=== PATIENT | male | born 1985 | race American Indian/Alaskan Native ===

== ENCOUNTER 2017-11-22 01:50 | Emergency (ER) | payer OTHER ==
[2017-11-22] MEDS ORDERED: ZOFRAN ODT PO ONE (07:56)
[2017-11-22] MEDS ORDERED: NORCO 5/325 PO ONE (07:56)
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
[2017-11-22 09:11] VITALS: BP 119/66
--- NOTE | 2017-11-22 09:20 | XRay Report ---
CERVICAL SPINE, 3 views: History: Neck pain. Findings: There is reversal of the normal cervical lordosis is moderate degenerative disc disease at C3-4 and C4-5. There is no evidence for fracture, subluxation or bone lesion. The dens is intact. The prevertebral soft tissues are normal thickness. Impression: No evidence for acute injury to the cervical spine. Reversal of the normal cervical lordosis. Degenerative changes.
== END 2017-11-22 10:00 | disposition home or self-care (01) ==
LOC: ED 01:50
DX: S09.8XXA Other specified injuries of head, initial encounter (principal); F17.200 Nicotine dependence, unspecified, uncomplicated; V59.19XA Passenger in pick-up truck or van injured in collision with other motor vehicles in nontraffic accident, initial encounter; Y93.89 Activity, other specified; Y92.89 Other specified places as the place of occurrence of the external cause; Y99.8 Other external cause status
CPT/HCPCS: 70450; 72040; Q0162

== ENCOUNTER 2017-11-24 16:29 | Emergency (ER) | payer SELFPAY ==
[2017-11-24 17:01] VITALS: BP 126/84
--- NOTE | 2017-11-24 18:49 | Emergency Department Report ---
HPI - General Chief Complaint: Sore Throat Time Seen by Provider: 11/24/17 18:27 - HPI HPI: Patient reports esophageal pain and that he is unable to swallow since 2 AM this morning. He states he has to have esophagus stretched. Patient denies any previous history. He said he just moved here from the [facility] and he called his doctor and they told him to come to the emergency room. Denies any drooling or difficulty controlling secretions. Pain is 10 out of 10. Reports history of acid reflux. He also reports that he has congestion and runny nose. Denies any medical problems. Denies any fever or chills or nausea or vomiting. Denies any coughing, shortness of breath. He reports that his chest is burning . No furx-xot-nxoscny medication taken. ED Past Medical Hx - Past Medical History Previous Medical History?: No - Surgical History Past Surgical History?: No - Family History Family history: no significant - Social History Smoking Status: Current Every Day Smoker Substance Use Type: Alcohol - Medications Home Medications: Home Medications Medication Instructions Recorded Confirmed Last Taken Type Cyclobenzaprine [Flexeril] 10 mg PO TID PRN #12 tablet 11/22/17 Unknown Rx Ibuprofen [Motrin] 800 mg PO Q8HR PRN #30 tablet 11/22/17 Unknown Rx ED Review of Systems ROS: Stated complaint: cp Other details as noted in HPI Comment: All other systems reviewed and negative Constitutional: no symptoms reported ENT: throat pain, congestion, other (reports pain to esophagitis and possible need stretch and). denies: ear pain, dental pain, hearing loss Respiratory: no symptoms reported Cardiovascular: denies: chest pain, palpitations, edema, syncope Gastrointestinal: denies: abdominal pain, nausea, vomiting Musculoskeletal: denies: back pain, joint swelling, myalgia Skin: denies: rash Neurological: denies: headache Physical Exam - Physical Exam Vital Signs: Vital Signs 11/24/17 16:56 Temperature 99 F Pulse Rate 84 Respiratory 16 Rate Blood Pressure 126/84 O2 Sat by Pulse 98 Oximetry General: This is a 32-year-old male well-nourished well-developed in no acute distress. Physical Exam: Head: Normocephalic atraumatic Ears:BIateral TM congested without erythema and loss of bony landmarks. Bryce EAC with normal exam. No mastoid bone tenderness. Mouth: Moist, no pharyngeal erythema or exudate . No tonsillar erythema or exudate. UVULA midline and oral airways patent. No peritonsillar abscess. Tongue is normal. Patient challenged with apple juice and he was able to swallow without any regurgitation. He did express that he was having some difficulty swallowing but none noted. Neck: Nontender to palpate, supple, normal range of motion. No adenopathy. No c- spine tenderness. Nose: Bilateral nasal mucosa congested with clear drainage. Maxillary and frontal sinuses non-tender to palpate. Eyes: Sclerae and conjunctiva without injection. Bilateral pupils equal and reactive to light. Bilateral lids are normal. Normal accommodation.BEOMI Lungs: Clear to auscultate bilaterally, no rhonchi wheezes or rales. Normal work of breathing and no chest wall tenderness Extremity: No clubbing, cyanosis or edema +2 pulses all extremities Abdomen: Soft, nontender to palpate in all quadrants, no guarding or rebound tenderness. No chest wall tenderness CV: S1, S2. Regular rate and rhythm negative murmur. Capillary refill is less than 3 seconds Skin: Clean dry and intact, no rashes or lesions Psych: Normal mood and behavior ED Course Vital Signs 11/24/17 16:56 Temperature 99 F Pulse Rate 84 Respiratory 16 Rate Blood Pressure 126/84 O2 Sat by Pulse 98 Oximetry - Reevaluation(s) Reevaluation #1: 11/24/17 19:16 Patient had an uneventful ED stay. He was challenged with by mouth apple juice and tolerated without any regurgitation. ED Medical Decision Making - Medical Decision Making ED course: Pt here reports difficulty swallowing and that he might need is esophagus stretched. He said he moved from the [facility] and he call his primary care doctor and was told to come to the emergency room. Physical findings were normal oral exam but patient with nasal congestion, runny nose, bilateral TM congested and he reports some sore throat worse with swallowing. He was orally challenged in the emergency room with upper juice and was able to tolerate. I discussed patient that his vital signs are stable and he is not regurgitated and his fluids and not drooling and his examination of mouth is normal without any abnormality neck. Patient reports no medical problems although he told me his esophagus needs to be stretch. I discussed with him that I will place him on medication to treat upper respiratory infection to include Zyrtec and Flonase and some steroids. He denies in immunocompromised. Patient agrees to treatment plan but nurse reports she went in the room to do a EKG on patient and he was not in the room. Patient was paged overhead without any response therefore he left after being seen. Critical care attestation.: If time is entered above; I have spent that time in minutes in the direct care of this critically ill patient, excluding procedure time. ED Disposition Clinical Impression: Sore throat, URI, acute Disposition: Z-07 ELOPED Is pt being admited?: No Does the pt Need Aspirin: No Condition: Stable
== END 2017-11-24 19:21 | disposition left against medical advice (07) ==
LOC: ED 16:29
DX: J02.9 Acute pharyngitis, unspecified (principal); F17.200 Nicotine dependence, unspecified, uncomplicated
CPT/HCPCS: 99282

== ENCOUNTER 2020-03-26 08:04 | Emergency (ER) | payer OTHER ==
[2020-03-26 08:55] LABS: Hematocrit 41.9 % (35.5-45.6); Hemoglobin 14.3 gm/dl (11.8-15.2); Mean Corpuscular HGB Conc 34 % (32-34); Mean Corpuscular Volume 93 fl (84-94); Platelet Count 226 K/mm3 (140-440); Red Blood Count 4.53 M/mm3 (3.65-5.03); Red Cell Distribution Width 14.2 % (13.2-15.2)
[2020-03-26 09:00] LABS: Bilirubin,Urine NEG (Negative); Blood,Urine NEG (Negative); Color,Urine Yellow (Yellow); Mucus,Urine FEW /HPF; Protein,Urine <15 mg/dL mg/dL (Negative); Urobilinogen,Urine < 2.0 mg/dL (<2.0)
[2020-03-26 09:09] LABS: Alanine Aminotransferase 9 units/L (7-56); Albumin 4.9 g/dL (3.9-5); BUN/Creatinine Ratio 15; Blood Urea Nitrogen 17 mg/dL (9-20); Calcium 9.9 mg/dL (8.4-10.2); Hemolysis Index 4
[2020-03-26] MEDS ORDERED: ALUM-MAG HYDROXIDE-SIMETHICONE 200-200-20MG/5ML ORAL LIQD 30 ML PO STA (10:58)
[2020-03-26] MEDS ORDERED: ONDANSETRON 4 MG ODT TAB PO STA (10:58)
[2020-03-26] MEDS ORDERED: HYOSCYAMINE SUBL 0.125 MG TAB SL ONE (10:58)
[2020-03-26] MEDS ORDERED: diphenhydrAMINE 25 MG/10 ML ORAL LIQUID PO ONE (10:59)
[2020-03-26] MEDS ORDERED: LIDOCAINE VISCOUS 2% 15 ML ORAL LIQD PO ONE (10:59)
[2020-03-26 11:41] LABS: Eosinophils % (Manual) 0 % (0.0-4.3); Platelet Estimate Consistent w Auto; RBC Morphology Normal; Total Cells Counted 100
--- NOTE | 2020-03-26 12:25 | Cat Scan Report ---
CT abdomen pelvis w con INDICATION: MAIN: Lower ABD Pain, Nausea x 1 wk, mid lower back pain no hx of kidney stones . TECHNIQUE: All CT scans at this location are performed using the following dose modulation technique: Automated exposure control. CONTRAST: Isovue-300, 100 cc IV injection. COMPARISON: None available. CT ABDOMEN: The parenchymal organs are unremarkable in appearance. Negative for abdominal mass, fluid or inflammation. The bowel is not dilated or thickened. CT PELVIS: The appendix is normal. Negative for distal ureteral stone, pelvic fluid collection or loc alized inflammation. IMPRESSION: Negative for obstruction or localized inflammation. Signer Name: Puma Smith MD Signed: 03/26/2020 12:20 PM Workstation Name: [id number]
--- NOTE | 2020-03-26 12:49 | Emergency Department Report ---
ED Abdominal Pain HPI - General Chief Complaint: Abdominal Pain Stated Complaint: STOMACH PAIN/ CHEST TIGHTNESS Time Seen by Provider: 03/26/20 10:05 Source: patient Mode of arrival: Ambulatory Limitations: No Limitations - History of Present Illness MD Complaint: abdominal pain -: Gradual, hour(s) (5) Location: diffuse Radiation: none Migration to: no migration Severity: mild, moderate Quality: cramping, aching Consistency: constant Improves With: nothing Worsens With: eating Context: possible food poisoning Associated Symptoms: denies: fever, chills, dysuria, hematemesis, hematochezia, melena, hematuria, anorexia - Related Data Previous Rx's Medication Instructions Recorded Last Taken Type Cyclobenzaprine [Flexeril] 10 mg PO TID PRN #12 tablet 11/22/17 Unknown Rx Ibuprofen [Motrin] 800 mg PO Q8HR PRN #30 tablet 11/22/17 Unknown Rx Hyoscyamine Subl [Levsin Sl] 0.125 mg SL Q4HR PRN #16 tablet 03/26/20 Unknown Rx Omeprazole 40 mg PO DAILY #30 capsule. 03/26/20 Unknown Rx Allergies Allergy/AdvReac Type Severity Reaction Status Date / Time No Known Allergies Allergy Verified 03/26/20 08:13 ED Review of Systems ROS: Stated complaint: STOMACH PAIN/ CHEST TIGHTNESS Other details as noted in HPI Comment: All other systems reviewed and negative ED Past Medical Hx - Past Medical History Previous Medical History?: No - Surgical History Past Surgical History?: No - Social History Smoking Status: Never Smoker Substance Use Type: None - Medications Home Medications: Home Medications Medication Instructions Recorded Confirmed Last Taken Type Cyclobenzaprine [Flexeril] 10 mg PO TID PRN #12 tablet 11/22/17 Unknown Rx Ibuprofen [Motrin] 800 mg PO Q8HR PRN #30 tablet 11/22/17 Unknown Rx Hyoscyamine Subl [Levsin Sl] 0.125 mg SL Q4HR PRN #16 tablet 03/26/20 Unknown Rx Omeprazole 40 mg PO DAILY #30 capsule. 03/26/20 Unknown Rx ED Physical Exam - General Limitations: No Limitations General appearance: alert, in no apparent distress - Head Head exam: Present: atraumatic, normocephalic - Eye Eye exam: Present: normal appearance, PERRL, EOMI - ENT ENT exam: Present: mucous membranes moist - Neck Neck exam: Present: normal inspection, full ROM - Respiratory Respiratory exam: Present: normal lung sounds bilaterally. Absent: respiratory distress, wheezes, rales, chest wall tenderness, accessory muscle use, decreased breath sounds - Cardiovascular Cardiovascular Exam: Present: regular rate, normal rhythm. Absent: systolic murmur, diastolic murmur, rubs, gallop - GI/Abdominal GI/Abdominal exam: Present: soft, tenderness (Some tenderness to the epigastric and left upper quadrant region. The abdomen is soft nontender), normal bowel sounds, other (No Rovsing, no Weir Luu, no Jairo sign, no tenderness at McBurney's. No Huffman sign). Absent: hyperactive bowel sounds, hypoactive bowel sounds, organomegaly, mass, pulsatile mass - Rectal Rectal exam: Present: deferred - Extremities Exam Extremities exam: Present: normal inspection, normal capillary refill - Back Exam Back exam: Present: normal inspection. Absent: CVA tenderness (R), CVA tenderness (L) - Neurological Exam Neurological exam: Present: alert, oriented X3, CN II-XII intact, normal gait - Psychiatric Psychiatric exam: Present: normal affect, normal mood - Skin Skin exam: Present: warm, dry, intact, normal color. Absent: rash ED Course Vital Signs 03/26/20 03/26/20 03/26/20 08:13 10:03 13:04 Pulse Rate 100 H 57 L Respiratory 18 18 20 Rate Blood Pressure 135/77 Blood Pressure [Right] O2 Sat by Pulse 100 99 Oximetry 03/26/20 13:07 Pulse Rate 69 Respiratory 18 Rate Blood Pressure Blood Pressure 122/78 [Right] O2 Sat by Pulse 98 Oximetry ED Medical Decision Making - Lab Data Result diagrams: 03/26/20 08:43 03/26/20 08:43 Lab Results 03/26/20 03/26/20 03/26/20 Range/Units 08:43 08:43 Unknown WBC 4.8 (4.5-11.0) K/mm3 RBC 4.53 (3.65-5.03) M/mm3 Hgb 14.3 (11.8-15.2) gm/dl Hct 41.9 (35.5-45.6) % MCV 93 (84-94) fl MCH 32 (28-32) pg MCHC 34 (32-34) % RDW 14.2 (13.2-15.2) % Plt Count 226 (140-440) K/mm3 Lymph % (Auto) Top Frame Fitter Add Manual Diff Complete Total Counted 100 Seg Neutrophils % Top Frame Fitter Seg Neuts % (Manual) 30.0 L (40.0-70.0) % Band Neutrophils % 0 % Lymphocytes % (Manual) 63.0 H (13.4-35.0) % Reactive Lymphs % (Man) 0 % Monocytes % (Manual) 6.0 (0.0-7.3) % Eosinophils % (Manual) 0 (0.0-4.3) % Basophils % (Manual) 1.0 (0.0-1.8) % Metamyelocytes % 0 % Myelocytes % 0 % Promyelocytes % 0 % Blast Cells % 0 % Nucleated RBC % Not Reportable Seg Neutrophils # Man 1.4 L (1.8-7.7) K/mm3 Band Neutrophils # 0.0 K/mm3 Lymphocytes # (Manual) 3.0 (1.2-5.4) K/mm3 Abs React Lymphs (Man) 0.0 K/mm3 Monocytes # (Manual) 0.3 (0.0-0.8) K/mm3 Eosinophils # (Manual) 0.0 (0.0-0.4) K/mm3 Basophils # (Manual) 0.0 (0.0-0.1) K/mm3 Metamyelocytes # 0.0 K/mm3 Myelocytes # 0.0 K/mm3 Promyelocytes # 0.0 K/mm3 Blast Cells # 0.0 K/mm3 WBC Morphology Not Reportable Hypersegmented Neuts Not Reportable Hyposegmented Neuts Not Reportable Hypogranular Neuts Not Reportable Smudge Cells Not Reportable Toxic Granulation Not Reportable Toxic Vacuolation Not Reportable Dohle Bodies Not Reportable Pelger-Huet Anomaly Not Reportable Nikhil Rods Not Reportable Platelet Estimate Consistent w auto Clumped Platelets Not Reportable Plt Clumps, EDTA Not Reportable Large Platelets Not Reportable Giant Platelets Not Reportable Platelet Satelliting Not Reportable Plt Morphology Comment Not Reportable RBC Morphology Normal Dimorphic RBCs Not Reportable Polychromasia Not Reportable Hypochromasia Not Reportable Poikilocytosis Not Reportable Anisocytosis Not Reportable Microcytosis Not Reportable Macrocytosis Not Reportable Spherocytes Not Reportable Pappenheimer Bodies Not Reportable Sickle Cells Not Reportable Target Cells Not Reportable Tear Drop Cells Not Reportable Ovalocytes Not Reportable Helmet Cells Not Reportable Guido[place] Bodies Not Reportable [place] Rings Not Reportable [place] Cells Not Reportable Bite Cells Not Reportable Crenated Cell Not Reportable Elliptocytes Not Reportable Acanthocytes (Spur) Not Reportable Rouleaux Not Reportable Hemoglobin C Crystals Not Reportable Schistocytes Not Reportable Malaria parasites Not Reportable Bruce Bodies Not Reportable Hem Pathologist Commnt No Sodium 139 (137-145) mmol/L Potassium 4.0 (3.6-5.0) mmol/L Chloride 102.6 (98-107) mmol/L Carbon Dioxide 25 (22-30) mmol/L Anion Gap 15 mmol/L BUN 17 (9-20) mg/dL Creatinine 1.1 (0.8-1.5) mg/dL Estimated GFR > 60 ml/min BUN/Creatinine Ratio 15 % Glucose 95 (75-100) mg/dL Calcium 9.9 (8.4-10.2) mg/dL Total Bilirubin 0.50 (0.1-1.2) mg/dL AST 14 (5-40) units/L ALT 9 (7-56) units/L Alkaline Phosphatase 50 (35-129) units/L Total Protein 7.4 (6.3-8.2) g/dL Albumin 4.9 (3.9-5) g/dL Albumin/Globulin Ratio 2.0 % Lipase (13-60) units/L Urine Color Yellow (Yellow) Urine Turbidity Clear (Clear) Urine pH 5.0 (5.0-7.0) Ur Specific [place] 1.023 (1.003-1.030) Urine Protein <15 mg/dl (Negative) mg/dL Urine Glucose (UA) Neg (Negative) mg/dL Urine Ketones Tr (Negative) mg/dL Urine Blood Neg (Negative) Urine Nitrite Neg (Negative) Urine Bilirubin Neg (Negative) Urine Urobilinogen < 2.0 (<2.0) mg/dL Ur Leukocyte Esterase Neg (Negative) Urine WBC (Auto) 1.0 (0.0-6.0) /HPF Urine RBC (Auto) 1.0 (0.0-6.0) /HPF Urine Mucus Few /HPF 03/26/20 Range/Units Unknown WBC (4.5-11.0) K/mm3 RBC (3.65-5.03) M/mm3 Hgb (11.8-15.2) gm/dl Hct (35.5-45.6) % MCV (84-94) fl MCH (28-32) pg MCHC (32-34) % RDW (13.2-15.2) % Plt Count (140-440) K/mm3 Lymph % (Auto) Add Manual Diff Total Counted Seg Neutrophils % Seg Neuts % (Manual) (40.0-70.0) % Band Neutrophils % % Lymphocytes % (Manual) (13.4-35.0) % Reactive Lymphs % (Man) % Monocytes % (Manual) (0.0-7.3) % Eosinophils % (Manual) (0.0-4.3) % Basophils % (Manual) (0.0-1.8) % Metamyelocytes % % Myelocytes % % Promyelocytes % % Blast Cells % % Nucleated RBC % Seg Neutrophils # Man (1.8-7.7) K/mm3 Band Neutrophils # K/mm3 Lymphocytes # (Manual) (1.2-5.4) K/mm3 Abs React Lymphs (Man) K/mm3 Monocytes # (Manual) (0.0-0.8) K/mm3 Eosinophils # (Manual) (0.0-0.4) K/mm3 Basophils # (Manual) (0.0-0.1) K/mm3 Metamyelocytes # K/mm3 Myelocytes # K/mm3 Promyelocytes # K/mm3 Blast Cells # K/mm3 WBC Morphology Hypersegmented Neuts Hyposegmented Neuts Hypogranular Neuts Smudge Cells Toxic Granulation Toxic Vacuolation Dohle Bodies Pelger-Huet Anomaly Nikhil Rods Platelet Estimate Clumped Platelets Plt Clumps, EDTA Large Platelets Giant Platelets Platelet Satelliting Plt Morphology Comment RBC Morphology Dimorphic RBCs Polychromasia Hypochromasia Poikilocytosis Anisocytosis Microcytosis Macrocytosis Spherocytes Pappenheimer Bodies Sickle Cells Target Cells Tear Drop Cells Ovalocytes Helmet Cells Guido[place] Bodies [place] Rings Mere Cells Bite Cells Crenated Cell Elliptocytes Acanthocytes (Spur) Rouleaux Hemoglobin C Crystals Schistocytes Malaria parasites Bruce Bodies Hem Pathologist Commnt Sodium (137-145) mmol/L Potassium (3.6-5.0) mmol/L Chloride (98-107) mmol/L Carbon Dioxide (22-30) mmol/L Anion Gap mmol/L BUN (9-20) mg/dL Creatinine (0.8-1.5) mg/dL Estimated GFR ml/min BUN/Creatinine Ratio % Glucose (75-100) mg/dL Calcium (8.4-10.2) mg/dL Total Bilirubin (0.1-1.2) mg/dL AST (5-40) units/L ALT (7-56) units/L Alkaline Phosphatase (35-129) units/L Total Protein (6.3-8.2) g/dL Albumin (3.9-5) g/dL Albumin/Globulin Ratio % Lipase 16 (13-60) units/L Urine Color (Yellow) Urine Turbidity (Clear) Urine pH (5.0-7.0) Ur Specific [place] (1.003-1.030) Urine Protein (Negative) mg/dL Urine Glucose (UA) (Negative) mg/dL Urine Ketones (Negative) mg/dL Urine Blood (Negative) Urine Nitrite (Negative) Urine Bilirubin (Negative) Urine Urobilinogen (<2.0) mg/dL Ur Leukocyte Esterase (Negative) Urine WBC (Auto) (0.0-6.0) /HPF Urine RBC (Auto) (0.0-6.0) /HPF Urine Mucus /HPF - Radiology Data Radiology results: report reviewed [facility] [address] [place] [address] Cat Scan Report Signed Patient: BRAYAN MARIE MR#: [id number] : 1985 Acct:[id number] Age/Sex: 34 / M ADM Date: 03/26/20 Loc: ED Attending Dr: Ordering Physician: MARISSA PEÑA Date of Service: 03/26/20 Procedure(s): CT abdomen pelvis w con Accession Number(s): [id number] cc: MARISSA PEÑA CT abdomen pelvis w con INDICATION: MAIN: Lower ABD Pain, Nausea x 1 wk, mid lower back pain no hx of kidney stones . TECHNIQUE: All CT scans at this location are performed using the following dose modulation technique: Automated exposure control. CONTRAST: Isovue-300, 100 cc IV injection. COMPARISON: None available. CT ABDOMEN: The parenchymal organs are unremarkable in appearance. Negative for abdominal mass, fluid or inflammation. The bowel is not dilated or thickened. CT PELVIS: The appendix is normal. Negative for distal ureteral stone, pelvic fluid collection or localized inflammation. IMPRESSION: Negative for obstruction or localized inflammation. Signer Name: Puma Smith MD Signed: 03/26/2020 12:20 PM Workstation Name: [id number] Transcribed By: SUSAN Dictated By: Puma Smith MD Electronically Authenticated By: Puma Smith MD Signed Date/Time: 03/26/20 1220 DD/ 1210 TD/TT: - Medical Decision Making [place] [id number] Cat Scan Report Signed Patient: BRAYAN MARIE MR#: [id number] : 1985 Acct:[id number] Age/Sex: 34 / M ADM Date: 03/26/20 Loc: ED Attending Dr: Ordering Physician: MARISSA PEÑA Date of Service: 03/26/20 Procedure(s): CT abdomen pelvis w con Accession Number(s): [id number] cc: MARISSA PEÑA CT abdomen pelvis w con INDICATION: MAIN: Lower ABD Pain, Nausea x 1 wk, mid lower back pain no hx of kidney stones . TECHNIQUE: All CT scans at this location are performed using the following dose modulation technique: Automated exposure control. CONTRAST: Isovue-300, 100 cc IV injection. COMPARISON: None available. CT ABDOMEN: The parenchymal organs are unremarkable in appearance. Negative for abdominal mass, fluid or inflammation. The bowel is not dilated or thickened. CT PELVIS: The appendix is normal. Negative for distal ureteral stone, pelvic fluid collection or localized inflammation. IMPRESSION: Negative for obstruction or localized inflammation. Signer Name: Puma Smith MD Signed: 03/26/2020 12:20 PM Workstation Name: [id number] Transcribed By: SUSAN Dictated By: Puma Smith MD Electronically Authenticated By: Puma Smith MD Signed Date/Time: 03/26/20 1220 DD/ 1210 TD/TT: Critical care attestation.: If time is entered above; I have spent that time in minutes in the direct care of this critically ill patient, excluding procedure time. ED Disposition Clinical Impression: Abdominal pain Disposition: DC-01 TO HOME OR SELFCARE Is pt being admited?: No Does the pt Need Aspirin: No Condition: Stable Instructions: Acute Abdominal Pain (ED) Prescriptions: Hyoscyamine Subl [Levsin Sl] 0.125 mg SL Q4HR PRN #16 tablet PRN Reason: Spasms Omeprazole 40 mg PO DAILY #30 capsule. Referrals: [facility] [Provider Group] - 3-5 Days Forms: Work/School Release Form(ED)
[2020-03-26 13:19] VITALS: BP 122/78
== END 2020-03-26 13:07 | disposition home or self-care (01) ==
LOC: ED 08:04
DX: R10.84 Generalized abdominal pain (principal); Z79.1 Long term (current) use of non-steroidal anti-inflammatories (NSAID); Z79.899 Other long term (current) drug therapy
CPT/HCPCS: 36415; 74177; 80053; 81001; 83690; 85007; 85025; 93005; 99284; Q9967; Q0162; Q0163